=== PATIENT | female | born 2000 | race Caucasian/White ===

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

== ENCOUNTER 2019-03-11 12:49 | Outpatient (CLI) | payer OTHER ==
[2019-03-11 14:03] LABS: RUPTURE FETAL MEMBRANES NEGATIVE (NEGATIVE)
== END 2019-03-11 15:32 | disposition home or self-care (01) ==
LOC: OBT 12:49 → L-D 12:51 → OBT 15:32
DX: O42.90 Premature rupture of membranes, unspecified as to length of time between rupture and onset of labor, unspecified weeks of gestation (principal); Z3A.28 28 weeks gestation of pregnancy
CPT/HCPCS: 76818; 84112